=== PATIENT | female | born 1970 | race Caucasian/White ===

== ENCOUNTER 2017-08-18 22:18 | Emergency (ER) | payer BC, OTHER ==
[~2017-08-18] VITALS: Ht 157.5 cm; Wt 82.2 kg
[~2017-08-18 22:18] MED LIST: AZITTAB PO; HYCUDL5 PO
[2017-08-18 22:21] VITALS: TEMP 36.6; Ht 157.5 cm; Wt 82.2 kg
--- NOTE | 2017-08-18 22:59 | EMERGENCY ROOM VISIT NOTE ---
ED Visit Note First contact with patient: 22:27 CHIEF COMPLAINT: Right eye pain, lump HISTORY OF PRESENT ILLNESS: This 47-year-old female patient presents to the emergency department, ambulatory, complaining of pain in the right eye which began on Sunday. The patient states on , she had a migraine. She states on Sunday morning, she awoke and noticed a bump in her right eye. She did feel that the migraine may have been due to allergies, as she did have some congestion and itchy, watery eyes that day. The patient has been experiencing discomfort, itchiness, and watery drainage all day today, and states she has had some light sensitivity. The patient works in a jewelry store, and is around bright lights all day. She states she is in cool air conditioning, and has noticed that the area is very dry. She does note a similar lesion in the eye approximately 6 weeks ago, but states it improved after 6-7 hours. She thought she may have had a pet hair in the eye at that time. She denies any recent injury or foreign body. She noticed the initial symptoms after showering. The discomfort is better with closing the eye. She has not been spending much time outside, but does report noticing worsening seasonal allergies lately. The patient does have prescriptions for her cassette, tramadol, and gabapentin, but has not taken them since she noticed the eye problem, so is uncertain if they have helped. The vision has not been decreased over all. The patient does not wear contacts. The patient rates the pain as irritation and 8/10. The patient has not had previous injuries to this eye. Tetanus shot is up to date. The patient did take one Benadryl, but states it did not seem to help. REVIEW OF SYSTEMS: A 6 system review of systems was completed with positives and pertinent negatives listed in the HPI. ALLERGIES: Aspirin, oxycodone MEDICATIONS: Percocet, tramadol, gabapentin PMH: Multiple foot surgeries SOCIAL HISTORY: The patient lives locally with family. She admits to smoking cigarettes. She denies drug or alcohol use. PHYSICAL EXAM: Vital Signs: Reviewed Nurse's notes, vital signs stable. Visual acuity 20/100 bilaterally. GENERAL: This is a 47-year-old female, in no acute distress, but who is uncomfortable from the eye problem. Well-developed well- nourished. EYES: The pupils are equal round and reactive to light and accommodation. EOMs are full and without tenderness. There is discharge of clear tears from the right eye which is mildly injected. There is a pinguecula noted in the lateral aspect of the right eye, overlying the sclera. There is no foreign body visible under the eyelid even after lid eversion. Funduscopic exam reveals no hemorrhages, papilledema, or other abnormalities. No foreign body was seen embedded in the cornea under slit lamp exam. The cornea was clear and no hyphema was seen. Fluorescein uptake was observed with ultraviolet light insignificant for a corneal abrasion. EMERGENCY DEPARTMENT COURSE: I examined the patient. A slit lamp exam was performed as above. I discussed the diagnosis with the patient, did recommend antihistamines as well as lubricating drops. The patient was agreeable to this plan of care. I did encourage ophthalmology follow-up. Discharge instructions reviewed, the patient was discharged home in good condition. I attest that I have personally reviewed the patient's current medication list. Patient was found to have normal blood pressure on screening and does not require follow-up. Etiologies such as pinguecula, pterygium, allergic rhinitis, foreign body, conjunctivitis, corneal abrasion, uveitis, glaucoma, periorbital cellulitis, orbital cellulitis, abscess, trauma, as well as others were entertained. DIAGNOSIS: Pinguecula of the right eye The chart was completed utilizing [employer] Speech voice recognition software. Grammatical errors, random word insertions, pronoun errors, and incomplete sentences are an occasional consequence of this system due to software limitations, ambient noise, and hardware issues. Any formal questions or concerns about the content, text, or information contained within the body of this dictation should be directly addressed to the provider for clarification. Current/Historical Medications Scheduled Kkbbknx-Aubceeycbobsb-Xpnuqwce (Excedrin Migraine), 2 TAB PO PRN UD Diphenhydramine Hcl (Benadryl Allergy), 1 CAP PO HS Scheduled PRN Gabapentin (Neurontin), 300 MG PO TID PRN for Pain Oxycodone/Acetaminophen 5MG/325MG (Percocet 5MG/325MG), 1-2 TABLETS PO Q6 PRN for Pain Tramadol (Ultram), 50 MG PO BID PRN for Pain Allergies Coded Allergies: Onion (Verified Allergy, Severe, HANDS & FEET SWELLS, NAUSEA, 08/18/17) Vital Signs Date Time Temp Pulse Resp B/P (MAP) Pulse Ox O2 Delivery O2 Flow Rate FiO2 08/18/17 23:10 92 16 143/97 97 Room Air 08/18/17 22:21 36.6 96 18 150/100 99 Room Air Departure Information Impression Primary Impression: Pinguecula of right eye Dispostion Home / Self-Care Condition GOOD Referrals No Doctor, Assigned (PCP) Roly Zacarias D.O. Patient Instructions ED Pterygium, My [facility] Additional Instructions You were seen in the ED today for a lump in your eye. As discussed, I suspect this is a pinguecula of the eye. This often occurs due to dry eyes and can worsen depending on your environment. There was no corneal abrasion or foreign body with staining of the eye. You should use saline eye drops (or saline gel drops) to help with dryness and discomfort. You may consider an antihistamine such as Zyrtec, Claritin, or [place], or you may consider adding in an antihistamine eye drop such as Pataday. Use your regular medications for pain or OTC pain medications. Follow-up with an fruit rancher next week. Return immediately to the ED for any worsening pain, drainage, visual disturbances, dizziness, syncope, or other concerns.
[2017-08-18] MEDS ORDERED: DIPH25CA65 PO (23:04)
[2017-08-18] MEDS ORDERED: GABA-113 PO (23:04)
[2017-08-18] MEDS ORDERED: OXYC-57 PO (23:04)
[2017-08-18] MEDS ORDERED: ASPI-390 PO (23:04)
[2017-08-18] MEDS ORDERED: TRAM-10 PO (23:04)
[2017-08-18 23:10] VITALS: BP 143/97; PULSE 92; O2SAT 97
== END 2017-08-18 23:05 | disposition home or self-care (01) ==
LOC: C.EDB 22:19 → C.EDC 23:05
DX: H11.151 Pinguecula, right eye (principal); Z88.5 Allergy status to narcotic agent; Z88.8 Allergy status to other drugs, medicaments and biological substances; F17.200 Nicotine dependence, unspecified, uncomplicated